=== PATIENT | female | born 1980 | race Asian ===

== ENCOUNTER 2017-04-22 23:55 | Emergency (ER) | payer SELFPAY ==
[~2017-04-22] VITALS: Ht 162.6 cm; Wt 72.7 kg
[2017-04-23 01:47] LABS: INFLUENZA TYPE A NEGATIVE FOR TYPE A (NEGATIVE); INFLUENZA TYPE B POSITIVE FOR TYPE B (NEGATIVE)
[2017-04-23] MEDS ORDERED: OSELTAMIVIR PHOSPHATE 75 MG CAPSULE PO ONE (02:00)
[2017-04-23 02:30] VITALS: BP 121/84
== END 2017-04-23 02:50 | disposition home or self-care (01) ==
LOC: EMS 23:57
DX: J10.1 Influenza due to other identified influenza virus with other respiratory manifestations (principal); R11.10 Vomiting, unspecified; Z98.890 Other specified postprocedural states
CPT/HCPCS: 87804; 99284